=== PATIENT | female | born 1930 | race Caucasian/White ===

== ENCOUNTER 2017-12-15 15:05 | Emergency (ER) | payer MEDICARE, OTHER ==
[2017-12-15] MEDS ORDERED: SODIUM CHLORIDE 0.9% 500 ML IV STA (15:41)
[2017-12-15] MEDS ORDERED: SODIUM CHLORIDE 0.9% 1,000 ML IV STA (15:41)
[2017-12-15] MEDS ORDERED: MORPHINE SULFATE 2 MG/ML SYRINGE IVP STA (15:41)
--- NOTE | 2017-12-15 16:12 | XR ---
Abdomen 2 view HISTORY: Pain 2 views of the abdomen on 3 images There is a calcification in the right upper quadrant measuring approximately 19 mm. Lung bases are cl ear. There is a spinal curvature and degenerative disc changes are present in the visualized spine. V ascular calcifications are present in the pelvis. No evident pneumoperitoneum or bowel obstruction. S clerosis present at the sacroiliac joints may be due to degenerative changes. IMPRESSION: There may be calcified gallstone. Scoliosis, degenerative changes as described
--- NOTE | 2017-12-15 16:14 | XR ---
EXAMINATION TYPE: XR chest 2V DATE OF EXAM: 12/15/2017 COMPARISON: Abdomen same date HISTORY: Weakness, chest pain TECHNIQUE: Frontal and lateral views of the chest are obtained. FINDINGS: Prominent lung volume could be indicative of underlying COPD. Arthropathy noted in the shou lders. There is no focal air space opacity, pleural effusion, or pneumothorax seen. The cardiac silh ouette size is within normal limits. The osseous structures are intact. IMPRESSION: No acute cardiopulmonary process.
[2017-12-15 16:34] LABS: ALT 43 U/L (9-52); AST 38 U/L (14-36); Albumin 3.8 g/dL (3.5-5.0); Alkaline Phosphatase 80 U/L (38-126); Anion Gap 11 mmol/L; Blood Urea Nitrogen 17 mg/dL (7-17); C Reactive Protein 17.5 mg/L (<10.0); Calcium 9.1 mg/dL (8.4-10.2); Carbon Dioxide 22 mmol/L (22-30); Chloride 104 mmol/L (98-107); Glucose 121 mg/dL (74-99); Potassium 4.2 mmol/L (3.5-5.1); Sodium 137 mmol/L (137-145); Total Bilirubin 0.5 mg/dL (0.2-1.3); Total Protein 6.8 g/dL (6.3-8.2)
[2017-12-15 16:40] LABS: Basophils % (A) 0 %; Eosinophils % (A) 0 %; HCT 37.5 % (34.0-46.0); HGB 12.3 gm/dL (11.4-16.0); Lymphocytes # (A) 0.5 k/uL (1.0-4.8); Lymphocytes % (A) 4 %; MCH 29.1 pg (25.0-35.0); MCHC 32.7 g/dL (31.0-37.0); MCV 88.9 fL (80.0-100.0); Mean Platelet Volume 7.6; Monocytes # (A) 0.7 k/uL (0-1.0); Monocytes % (A) 4 %; Neutrophils # (A) 13.6 k/uL (1.3-7.7); Neutrophils % (A) 91 %; Platelet Count 177 k/uL (150-450); RBC 4.21 m/uL (3.80-5.40); RDW 14.6 % (11.5-15.5); WBC 14.9 k/uL (3.8-10.6)
[2017-12-15 16:44] LABS: Creatine Kinase 49 U/L (30-135)
[2017-12-15 16:45] LABS: INR 1.1 (<1.2); Partial Thromboplastin Time 22.9 sec (22.0-30.0); Prothrombin Time 10.4 sec (9.0-12.0)
[2017-12-15 16:57] LABS: Creatine Kinase MB 0.7 ng/mL (0.0-2.4); Troponin I <0.012 ng/mL (0.000-0.034)
--- NOTE | 2017-12-15 17:39 | ED ---
Weakness HPI - General Source: patient Mode of arrival: ambulatory Limitations: no limitations <Ruth Christianson - Last Filed: 12/15/17 17:51> <Luis Duke - Last Filed: 12/15/17 20:42> - General Chief complaint: Weakness Stated complaint: heartburn/stomach ache Time Seen by Provider: 12/15/17 15:26 - History of Present Illness Initial comments: 87 years old lady comes in with abdominal pain she said abdominal pain starts in the lower abdomen and goes to the chest she was worried about heart attack she does not have any chest pain as such I denies any shortness of breath no headaches no neck pain no chest pain no shortness of breath. Denies any frequency urgency dysuria no signs of symptoms of TIA or CVA (Ruth Christianson) - Related Data Home Medications Medication Instructions Recorded Confirmed Calcium Carbonate [Calcium] 600 mg PO DAILY 12/15/17 12/15/17 Cholecalciferol [Vitamin D3] 1,000 unit PO DAILY 12/15/17 12/15/17 Levothyroxine Sodium [Synthroid] 50 mcg PO Q48H 12/15/17 12/15/17 Levothyroxine Sodium [Synthroid] 75 mcg PO Q48H 12/15/17 12/15/17 Magnesium 200 mg PO DAILY 12/15/17 12/15/17 Multivit-Min/Iron/Folic/Lutein 1 tab PO DAILY 12/15/17 12/15/17 [Centrum Silver Women Tablet] Previous Rx's Medication Instructions Recorded Cephalexin [Keflex] 500 mg PO QID #40 cap 12/15/17 Allergies Allergy/AdvReac Type Severity Reaction Status Date / Time Sulfa (Sulfonamide Allergy Unknown Verified 12/15/17 16:07 Antibiotics) Review of Systems ROS Other: All systems not noted in ROS Statement are negative. <Ruth Christianson - Last Filed: 12/15/17 17:51> ROS Other: All systems not noted in ROS Statement are negative. <Luis Duke - Last Filed: 12/15/17 20:42> ROS Statement: Those systems with pertinent positive or pertinent negative responses have been documented in the HPI. Past Medical History Past Medical History: Thyroid Disorder History of Any Multi-Drug Resistant Organisms: None Reported Past Surgical History: Orthopedic Surgery Past Psychological History: No Psychological Hx Reported Smoking Status: Never smoker Past Alcohol Use History: Occasional Past Drug Use History: None Reported <Sammy,Ruth - Last Filed: 12/15/17 17:51> General Exam Limitations: no limitations <Ruth Christianson - Last Filed: 12/15/17 17:51> <Luis Duke - Last Filed: 12/15/17 20:42> - General Exam Comments Initial Comments: General: The patient is awake and alert, in no distress, and does not appear acutely ill. Skin: Skin is warm and dry and no rashes or lesions are noted. Eye: Pupils are equal, round and reactive to light, extra-ocular movements are intact; there is normal conjunctiva bilaterally. Ears, nose, mouth and throat: There are moist mucous membranes and no oral lesions. Neck: The neck is supple, there is no tenderness or JVD. Cardiovascular: There is a regular rate and rhythm. No murmur, rub or gallop is appreciated. Respiratory: To auscultation bilateral, no wheezing no rhonchi no distress respiratory early noticed Gastrointestinal: Mild tenderness noticed in the right side of the abdomen, positive bowel sounds no guarding no rebounds. Back: There is no tenderness to palpation in the midline. There is no obvious deformity. Musculoskeletal: Normal ROM, no tenderness, There is no pedal edema. There is no calf tenderness or swelling. No cords were appreciated. Neurological: CN II-XII intact, Cranial nerves III through XII are intact. There are no obvious motor or sensory deficits. Coordination appears grossly intact. Speech is normal. Psychiatric: Cooperative, appropriate mood & affect, normal judgment. (Ruth Christianson) Course <Ruth Christianson - Last Filed: 12/15/17 17:51> <Luis Duke - Last Filed: 12/15/17 20:42> Vital Signs 12/15/17 12/15/17 12/15/17 15:17 16:11 17:32 Temperature 98.5 F Pulse Rate 109 H 92 68 Respiratory 18 18 16 Rate Blood Pressure 122/75 141/69 142/66 O2 Sat by Pulse 95 94 L 95 Oximetry 12/15/17 12/15/17 12/15/17 18:32 19:28 19:33 Temperature 98.3 F Pulse Rate 90 90 91 Respiratory 16 16 18 Rate Blood Pressure 143/67 136/70 159/73 O2 Sat by Pulse 95 96 97 Oximetry On reassessment noticed white count is 14.9 with a left shift chemistries troponin and x-ray are unremarkable C-reactive protein is bit elevated patient was reexamined she still bit tender in right lower quadrant area she wanted to go home but I recommended that she still struggling to the CT of the abdomen to make sure that there are no further complications wheezing she agreed with the period down CT abdomen and pelvis will be ordered and now will be followed up by Dr. Luis Duke (Ruth Christianson) EKG Findings - EKG Comments: EKG Findings:: KG is normal sinus ventricular rate is 90 GA interval is 168 QRS duration is 100 QT/QTC 360/452 review of this EKG does not reveal any ST elevation or depression <Ruth Christianson - Last Filed: 12/15/17 17:51> Medical Decision Making - Lab Data Result diagrams: 12/15/17 16:10 12/15/17 16:10 <Ruth Christianson - Last Filed: 12/15/17 17:51> - Lab Data Result diagrams: 12/15/17 16:10 12/15/17 16:10 - Radiology Data Radiology results: report reviewed (Computed tomography scan of the abdomen pelvis shows no acute process. 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 Abdominal x-ray shows possible calcified gallstone. Degenerative changes.) <Luis Duke - Last Filed: 12/15/17 20:42> - Medical Decision Making Patient reevaluated by myself, Dr. Duke. Patient resting comfortably in bed. Patient had earlier requested multiple times to be discharged. Patient denies ever having chest discomfort. Patient states she does have abdominal discomfort that did radiate up towards the chest. Patient is made aware of limitations of cardiac testing and emergency department. Patient is updated on results including CT results and aneurysm. Patient states this is known to her and is agreeable to follow-up with her primary care physician for this. Abdomen is soft and nontender. (Luis Duke) - Lab Data Lab Results 12/15/17 12/15/17 12/15/17 Range/Units 16:10 16:10 16:10 WBC 14.9 H (3.8-10.6) k/uL RBC 4.21 (3.80-5.40) m/uL Hgb 12.3 (11.4-16.0) gm/dL Hct 37.5 (34.0-46.0) % MCV 88.9 (80.0-100.0) fL MCH 29.1 (25.0-35.0) pg MCHC 32.7 (31.0-37.0) g/dL RDW 14.6 (11.5-15.5) % Plt Count 177 (150-450) k/uL Neutrophils % 91 % Lymphocytes % 4 % Monocytes % 4 % Eosinophils % 0 % Basophils % 0 % Neutrophils # 13.6 H (1.3-7.7) k/uL Lymphocytes # 0.5 L (1.0-4.8) k/uL Monocytes # 0.7 (0-1.0) k/uL Eosinophils # 0.0 (0-0.7) k/uL Basophils # 0.0 (0-0.2) k/uL PT (9.0-12.0) sec INR (<1.2) APTT (22.0-30.0) sec Sodium 137 (137-145) mmol/L Potassium 4.2 (3.5-5.1) mmol/L Chloride 104 (98-107) mmol/L Carbon Dioxide 22 (22-30) mmol/L Anion Gap 11 mmol/L BUN 17 (7-17) mg/dL Creatinine 0.70 (0.52-1.04) mg/dL Est GFR (CKD-EPI)AfAm >90 (>60 ml/min/1.73 sqM) Est GFR (CKD-EPI)NonAf 79 (>60 ml/min/1.73 sqM) Glucose 121 H (74-99) mg/dL Plasma Lactic Acid Margarito (0.7-2.0) mmol/L Calcium 9.1 (8.4-10.2) mg/dL Total Bilirubin 0.5 (0.2-1.3) mg/dL AST 38 H (14-36) U/L ALT 43 (9-52) U/L Alkaline Phosphatase 80 (38-126) U/L Total Creatine Kinase 49 (30-135) U/L CK-MB (CK-2) 0.7 (0.0-2.4) ng/mL CK-MB (CK-2) Rel Index 1.4 Troponin I <0.012 (0.000-0.034) ng/mL C-Reactive Protein 17.5 H (<10.0) mg/L Total Protein 6.8 (6.3-8.2) g/dL Albumin 3.8 (3.5-5.0) g/dL Urine Color Urine Appearance (Clear) Urine pH (5.0-8.0) Ur Specific Roy[place] (1.001-1.035) Urine Protein (Negative) Urine Glucose (UA) (Negative) Urine Ketones (Negative) Urine Blood (Negative) Urine Nitrite (Negative) Urine Bilirubin (Negative) Urine Urobilinogen (<2.0) mg/dL Ur Leukocyte Esterase (Negative) Urine RBC (0-5) /hpf Urine WBC (0-5) /hpf Ur Squamous Epith Cells (0-4) /hpf Urine Bacteria (None) /hpf Urine Mucus (None) /hpf 12/15/17 12/15/17 12/15/17 Range/Units 16:10 16:10 17:52 WBC (3.8-10.6) k/uL RBC (3.80-5.40) m/uL Hgb (11.4-16.0) gm/dL Hct (34.0-46.0) % MCV (80.0-100.0) fL MCH (25.0-35.0) pg MCHC (31.0-37.0) g/dL RDW (11.5-15.5) % Plt Count (150-450) k/uL Neutrophils % % Lymphocytes % % Monocytes % % Eosinophils % % Basophils % % Neutrophils # (1.3-7.7) k/uL Lymphocytes # (1.0-4.8) k/uL Monocytes # (0-1.0) k/uL Eosinophils # (0-0.7) k/uL Basophils # (0-0.2) k/uL PT 10.4 (9.0-12.0) sec INR 1.1 (<1.2) APTT 22.9 (22.0-30.0) sec Sodium (137-145) mmol/L Potassium (3.5-5.1) mmol/L Chloride (98-107) mmol/L Carbon Dioxide (22-30) mmol/L Anion Gap mmol/L BUN (7-17) mg/dL Creatinine (0.52-1.04) mg/dL Est GFR (CKD-EPI)AfAm (>60 ml/min/1.73 sqM) Est GFR (CKD-EPI)NonAf (>60 ml/min/1.73 sqM) Glucose (74-99) mg/dL Plasma Lactic Acid Margarito 0.9 (0.7-2.0) mmol/L Calcium (8.4-10.2) mg/dL Total Bilirubin (0.2-1.3) mg/dL AST (14-36) U/L ALT (9-52) U/L Alkaline Phosphatase (38-126) U/L Total Creatine Kinase (30-135) U/L CK-MB (CK-2) (0.0-2.4) ng/mL CK-MB (CK-2) Rel Index Troponin I (0.000-0.034) ng/mL C-Reactive Protein (<10.0) mg/L Total Protein (6.3-8.2) g/dL Albumin (3.5-5.0) g/dL Urine Color Yellow Urine Appearance Cloudy H (Clear) Urine pH 6.5 (5.0-8.0) Ur Specific [place] 1.015 (1.001-1.035) Urine Protein Trace H (Negative) Urine Glucose (UA) Negative (Negative) Urine Ketones 1+ H (Negative) Urine Blood Trace H (Negative) Urine Nitrite Negative (Negative) Urine Bilirubin Negative (Negative) Urine Urobilinogen <2.0 (<2.0) mg/dL Ur Leukocyte Esterase Large H (Negative) Urine RBC 9 H (0-5) /hpf Urine WBC 61 H (0-5) /hpf Ur Squamous Epith Cells <1 (0-4) /hpf Urine Bacteria Moderate H (None) /hpf Urine Mucus Occasional H (None) /hpf Disposition <Ruth Christianson - Last Filed: 12/15/17 17:51> Is patient prescribed a controlled substance at d/c from ED?: No Time of Disposition: 20:42 <Luis Duke - Last Filed: 12/15/17 20:42> Clinical Impression: Abdominal pain, Urinary tract infection Disposition: HOME SELF-CARE Condition: Stable Instructions: Abdominal Pain (ED), Urinary Tract Infection in Women (ED) Additional Instructions: Please follow-up with primary care physician in the next couple days for recheck. Return for increased pain, chest pain, worsening or change in symptoms , fevers or weakness, or other concerns. Prescriptions: Cephalexin [Keflex] 500 mg PO QID #40 cap Referrals: Asuncion Adan MD [STAFF PHYSICIAN] - 1-2 days
[2017-12-15 18:08] LABS: Appearance,Urine Cloudy (Clear); Bacteria,Urine Moderate /hpf; Bilirubin,Urine Negative (Negative); Blood,Urine Trace (Negative); Color,Urine Yellow; Glucose,Urine (UA) Negative (Negative); Ketones,Urine 1+ (Negative); Leukocyte Esterase,Urine Large (Negative); Mucus,Urine Occasional /hpf; Nitrite,Urine Negative (Negative); PH, Urine 6.5 (5.0-8.0); Protein,Urine Trace (Negative); RBC,Urine 9 /hpf (0-5); Specific Gravity,Urine 1.015 (1.001-1.035); Squamous Epithelial Cell,Urine <1 /hpf (0-4); Urobilinogen,Urine <2.0 mg/dL (<2.0); WBC,Urine 61 /hpf (0-5)
[2017-12-15 19:34] VITALS: RESP 18
--- NOTE | 2017-12-15 20:27 | CT ---
EXAMINATION TYPE: CT abdomen pelvis w con DATE OF EXAM: 12/15/2017 COMPARISON: Same day abdominal radiographs HISTORY: Abdominal pain today, worse to right lower quadrant. CT DLP: 544.2 mGycm Automated exposure control for dose reduction was used. TECHNIQUE: Helical acquisition of images was performed from the lung bases through the pelvis. CONTRAST: Performed without Oral Contrast and with IV Contrast, patient injected with 100 mL of Isovue 300. FINDINGS: LUNG BASES: No significant abnormality is appreciated. LIVER/GB: No significant abnormality is appreciated. There are no evident cholelithiasis. PANCREAS: No significant abnormality is seen. SPLEEN: No significant abnormality is seen. ADRENALS: No significant abnormality is seen. KIDNEYS: The right upper quadrant calcification represents a calcified 1.5 cm diameter right renal an eurysm, with patent lumen centrally. On the left, there is a 9 cm diameter simple left renal cyst. FREE AIR: No free air is visualized. RETROPERITONEAL ADENOPATHY: None visualized REPRODUCTIVE ORGANS: No significant abnormality is seen URINARY BLADDER: No significant abnormality is seen. PELVIC ADENOPATHY: None visualized. OSSEOUS STRUCTURES: No significant abnormality is seen. BOWEL: No significant abnormality is seen. OTHER: The vasculature is unremarkable. IMPRESSION: 1. NO ACUTE PROCESS. 2. 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
[2017-12-15] MEDS ORDERED: CEPHALEXIN 500 MG CAP PO STA (20:42)
[2017-12-15 21:00] VITALS: BP 133/70; PULSE 79; TEMP 98.2
== END 2017-12-15 21:00 | disposition home or self-care (01) ==
LOC: EC 15:05
DX: N39.0 Urinary tract infection, site not specified (principal); I72.2 Aneurysm of renal artery; R07.9 Chest pain, unspecified; E07.9 Disorder of thyroid, unspecified; Z79.899 Other long term (current) drug therapy; Z88.2 Allergy status to sulfonamides; Z53.20 Procedure and treatment not carried out because of patient's decision for unspecified reasons
CPT/HCPCS: 36415; 93005; 80053; 82550; 82553; 83605; 84484; 85025; 85610; 85730; 86140; 81001; 87040; 71046; 74019; 74177; 99285; 96360; 96361 ×4; Q9967

== ENCOUNTER 2017-12-31 14:05 | Emergency (ER) | payer MEDICARE ==
[2017-12-31 14:10] VITALS: BP 120/78; PULSE 84; RESP 20; TEMP 98.1
[2017-12-31] MEDS ORDERED: DIPH,PERTUS(ACELL)TETVAC-LF 0.5 ML VIAL IM ONE (14:42)
[2017-12-31] MEDS ORDERED: LIDOCAINE 1% INJ 10MG/ML (20 ML MDV) SQ ONE ×2 (14:42→15:52)
--- NOTE | 2017-12-31 15:28 | XR ---
EXAMINATION TYPE: XR tibia fibula RT DATE OF EXAM: 12/31/2017 CLINICAL HISTORY: Right lower extremity laceration TECHNIQUE: Two views of the right leg are obtained. COMPARISON: None. FINDINGS: There is no acute fracture or dislocation seen in the right tibia or fibula. No osseous l aceration is seen. The right knee joint demonstrates prior arthroplasty in normal anatomic alignment. Ankle joint appears within normal limits. Soft tissue laceration seen over the distal diaphysis of t he anterior right tibia without radiopaque foreign body at this location. Superior to this there is a probable phlebolith and also within the medial mid diaphyseal soft tissues there are probable phlebo liths. There is mild osseous demineralization throughout. IMPRESSION: There is no acute fracture or dislocation seen in the right tibia or fibula. Anterior so ft tissue laceration over the distal tibial diaphysis.
--- NOTE | 2017-12-31 16:26 | ED ---
General Adult HPI - General Source: patient Mode of arrival: ambulatory Limitations: no limitations <Josy Willingham - Last Filed: 12/31/17 20:00> <Abhay Buenrostro - Last Filed: 12/31/17 20:09> - General Chief complaint: Wound/Laceration Stated complaint: Leg injury Time Seen by Provider: 12/31/17 14:37 - History of Present Illness Initial comments: This is a 87-year-old female with past medical history of hypothyroidism who presents today for chief complaint of laceration to the right owens. Patient states that around 12:30pm this afternoon she was opening a trendall bed when a bring flung loose and cut her across of anterior lower right leg. Her daughter who is an orthopedic surgeon was there at the time who irrigated the wound and applied iodine to the wound then wrapped with sterile gauze bandage. They also iced and elevated the leg. They did not have suture material at home and her TDaP was no up to date so her daughter brought her to the emergency department. Pt is not on any anticoagulants. Upon arrival pt complained of pain at the site of the laceration with palpation but no pain with ambulation or at rest, pt denied numbness, tingling, paresthesias or loss of sensation of the lower extremity, foot drop. Patient denies any recent fever, chills, shortness of breath, chest pain, back pain, abdominal pain, nausea or vomiting, numbness or tingling, dysuria or hematuria, constipation or diarrhea, headaches or visual changes, or any other complaints. Pt cannot recall her last tetanus shot. (Josy Willingham) - Related Data Home Medications Medication Instructions Recorded Confirmed Calcium Carbonate [Calcium] 600 mg PO DAILY 12/15/17 12/15/17 Cholecalciferol [Vitamin D3] 1,000 unit PO DAILY 12/15/17 12/15/17 Levothyroxine Sodium [Synthroid] 50 mcg PO Q48H 12/15/17 12/15/17 Levothyroxine Sodium [Synthroid] 75 mcg PO Q48H 12/15/17 12/15/17 Magnesium 200 mg PO DAILY 12/15/17 12/15/17 Multivit-Min/Iron/Folic/Lutein 1 tab PO DAILY 12/15/17 12/15/17 [Centrum Silver Women Tablet] Previous Rx's Medication Instructions Recorded Cephalexin [Keflex] 500 mg PO QID #40 cap 12/15/17 Allergies Allergy/AdvReac Type Severity Reaction Status Date / Time Sulfa (Sulfonamide Allergy Unknown Verified 12/31/17 14:10 Antibiotics) Review of Systems ROS Other: All systems not noted in ROS Statement are negative. Constitutional: Denies: fever, chills Eyes: Denies: eye pain ENT: Denies: ear pain Respiratory: Denies: cough, dyspnea, wheezes, hemoptysis Cardiovascular: Denies: chest pain, palpitations Gastrointestinal: Denies: abdominal pain, nausea, vomiting, diarrhea, constipation Genitourinary: Denies: urgency, dysuria Musculoskeletal: Denies: back pain, joint swelling, arthralgia Skin: Reports: as per HPI. Denies: change in color Neurological: Denies: headache, weakness, numbness, paresthesias, confusion, abnormal gait, vertigo <Josy Willingham - Last Filed: 12/31/17 20:00> ROS Other: All systems not noted in ROS Statement are negative. <Abhay Buenrostro - Last Filed: 12/31/17 20:09> ROS Statement: Those systems with pertinent positive or pertinent negative responses have been documented in the HPI. Past Medical History Past Medical History: Thyroid Disorder Additional Past Medical History / Comment(s): UTI's History of Any Multi-Drug Resistant Organisms: None Reported Past Surgical History: Orthopedic Surgery Past Psychological History: No Psychological Hx Reported Smoking Status: Never smoker Past Alcohol Use History: Occasional Past Drug Use History: None Reported <Josy Willingham - Last Filed: 12/31/17 20:00> General Exam Limitations: no limitations <Josy Willingham - Last Filed: 12/31/17 20:00> <Abhay Buenrostro - Last Filed: 12/31/17 20:09> - General Exam Comments Initial Comments: General: The patient is awake and alert, in no distress, and does not appear acutely ill. Eye: Pupils are equal, round and reactive to light, extra-ocular movements are intact. No nystagmus. There is normal conjunctiva bilaterally. No signs of icterus. Ears, nose, mouth and throat: There are moist mucous membranes and no oral lesions. Neck: The neck is supple, there is no tenderness or JVD. Cardiovascular: There is a regular rate and rhythm. No murmur, rub or gallop is appreciated. Respiratory: Lungs are clear to auscultation, respirations are non-labored, breath sounds are equal. No wheezes, stridor, rales, or rhonchi. Musculoskeletal: Full passive and active ROM of the LE equally b/l, no tenderness. Sensation intact of the LE b/l. Pulses equal bilaterally 2+DP. Capillary refill <2secs. No evidence of foot drop. Neurological: A&O x 3. CN II-XII intact, There are no obvious motor or sensory deficits. Coordination appears grossly intact. Speech is normal. Skin: Skin is warm and dry and no rashes. There is a 4cm laceration to right anterior lower leg, no evidence of exposure of tendons, bones or underlying structure upon examination. Psychiatric: Cooperative, appropriate mood & affect, normal judgment. (Josy Willingham) Course <Josy Willingham - Last Filed: 12/31/17 20:00> <Abhay Buenrostro - Last Filed: 12/31/17 20:09> Vital Signs 12/31/17 14:08 Temperature 98.1 F Pulse Rate 84 Respiratory 20 Rate Blood Pressure 120/78 O2 Sat by Pulse 100 Oximetry - Reevaluation(s) Reevaluation #1: 12/31/17 20:08 PA supervision: I personally saw and examined the patient and I reviewed and agree with the PA findings including all diagnostic interpretation treatment plans is written was otherwise stated. (Abhay Buenrostro) Procedures - Laceration Laceration #1 Consent Obtained: verbal consent Time Out Performed: Yes Indication: laceration Site: lower extremity (right lower leg) Description: linear, clean Depth: simple, single layer Anesthetic Used: lidocaine 1% Anesthesia Technique: local infiltration Pre-repair: wound explored, irrigated extensively, deep structures intact Type of Sutures: nylon Size of Sutures: 4-0 Number of Sutures: 7 Technique: simple, interrupted Patient Tolerated Procedure: well, no complications <Josy Willingham - Last Filed: 12/31/17 20:00> <Abhay Buenrostro - Last Filed: 12/31/17 20:09> - Laceration Laceration #1 Additional Comments: Wound cleansed with iodine extensively before SQ local lidocaine, 1L sterile saline used for irrigation, wound extensively explored no FB or underlying structures exposed. Wound covered with sterile dressing. (Josy Willingham) Medical Decision Making <Josy Willingham - Last Filed: 12/31/17 20:00> <Abhay Buenrostro - Last Filed: 12/31/17 20:09> - Medical Decision Making 87yo with no significant PMH, no anticoagulation use presents today for CC of right LE laceration, given the location and depth of laceration concern for possible open fracture. XR (-), wound extensively irrigated and explored no underlying structures including muscles, tendons or bone exposed, No FB. Pt was examined in person by Dr. Buenrostro. Laceration approximated with 7 4.0 simple interrupted sutures. Pt tolerated procedure well. Wound was covered with sterile bandage-pt or pt daughter did not want to wait for application of bacitracin as they were late for family gathering. Pt d/c with PCP f/u in 1-2 days and suture removal in 7. Pt educated on signs and symptoms of infection. D/ c in stable condition. (Josy Willingham) Disposition Is patient prescribed a controlled substance at d/c from ED?: No Time of Disposition: 16:26 <Josy Willingham - Last Filed: 12/31/17 20:00> <Abhay Buenrostro - Last Filed: 12/31/17 20:09> Clinical Impression: Laceration, Laceration of right lower leg Disposition: HOME SELF-CARE Condition: Good Instructions: Care For Your Stitches (ED), Laceration (ED) Additional Instructions: Please use over the counter pain medicationas needed for pain as discussed. Please follow-up with family doctor in the next 2 days of symptoms have not improved. Please return to the emergency department for suture removal in 7 days. Please return to emergency room if the symptoms increase or worsen or for any other concerns including signs of infection as discussed. Referrals: Nonstaff,Physician [Primary Care Provider] - 1-2 days
== END 2017-12-31 16:49 | disposition home or self-care (01) ==
LOC: EC 14:05
DX: S81.811A Laceration without foreign body, right lower leg, initial encounter (principal); E03.9 Hypothyroidism, unspecified; Z23 Encounter for immunization; Z53.8 Procedure and treatment not carried out for other reasons; Z79.899 Other long term (current) drug therapy; Z88.2 Allergy status to sulfonamides; W45.8XXA Other foreign body or object entering through skin, initial encounter; Y92.009 Unspecified place in unspecified non-institutional (private) residence as the place of occurrence of the external cause
CPT/HCPCS: 73590; 90715; 99283; 12002; 90471; J2001